=== PATIENT | male | born 1970 | race Caucasian/White ===

== ENCOUNTER → 2017-01-15 | Outpatient (CLI) | payer BC, OTHER, SELFPAY ==
--- NOTE | 2017-01-15 19:18 | MRI ---
EXAM DESCRIPTION: Lumbar Spine w/Contrast CLINICAL HISTORY: 46 years,Male,BULGING DISC COMPARISON: None TECHNIQUE: MRI before multiple sequences of the lumbar spine. With and without gadolinium contrast FINDINGS: The vertebral bodies demonstrate normal signal and morphology. Spinal cord normal signal and morphology. No enhancing masses. Tip of the conus is at L1. Surrounding soft tissues unremarkable. L5-S1: Disk height is mildly loss. There is moderate annular disc bulge with AP thickness of about 4 mm and possible high intensity zone and some mild enhancement about the annulus.. The facettes mildly hypertrophic. There is mild lateral recess stenosis bilaterally. Upon the transversing S1 nerve roots. There is [id number] bilateral neural foraminal stenosis. L4-5: Disk height is mild to moderate loss. There is mild annular disc bulge but a left paracentral focal disc protrusion of C6-7 millimeters causing moderate left lateral recess stenosis impinging upon the transversing L5 nerve root and there is enhancement of the stranding tissue and the patient has had a left hemilaminectomy. The facettes moderately hypertrophic. There is left lateral recess stenosis. There is moderate to severe left neural foraminal stenosis minimal right. L3-4: Disk height is unremarkable. There is mild posterior lateral disc bulges. The facettes mildly hypertrophic to moderate. There is no spinal canal stenosis. There is minimal bilateral neural foraminal stenosis. L2-3: Disk height is minimal loss. There is minimal posterior lateral disc bulges. The facettes mildly hypertrophic. There is no spinal canal stenosis. There is no neural foraminal stenosis. L1-2: Disk height is mild loss. There is mild annular disc bulge. The facettes mild hypertrophic. There is no spinal canal stenosis. There is no neural foraminal stenosis. IMPRESSION: L4-5 demonstrates a left hemilaminectomy. There is a left focal disc protrusion resulting in left lateral recess stenosis impinging upon the transversing L5 nerve root. And enhancement granulation tissue about it. L5-S1 demonstrates a broad-based disc bulge with possible posterior annular fissure and mild bilateral lateral recess stenosis impinging upon the transversing L5 nerve roots. There is facet arthropathy throughout the lumbar spine. Mostly mild but more moderate at the lower two lumbar levels. And neural foraminal stenosis as described above at the lower three lumbar levels worse at L4-5 on the left and bilateral at L5-S1 which is more moderate. Electronically signed by: David Davenport MD 01/15/2017 7:17 PM CDT
== END | disposition home or self-care (01) ==
LOC: MRI 07:06
PROVIDERS: ATTEND Family Medicine
DX: M51.26 Other intervertebral disc displacement, lumbar region (principal)

== ENCOUNTER 2019-03-30 18:25 | Emergency (ER) | payer BC, SELFPAY ==
[2019-03-30] MEDS ORDERED: ONDANSETRON INJ 4 MG/2 ML VIAL ONE (18:42)
[2019-03-30] MEDS ORDERED: KETOROLAC TROMETHAMINE INJ 30 MG/ML VIAL ONE (18:42)
[2019-03-30] MEDS ORDERED: MORPHINE SULFATE INJ 10 MG/ML VIAL IV ONE ×2 (18:42→18:44)
[2019-03-30] MEDS ORDERED: ONDANSETRON INJ 4 MG/2 ML VIAL IV ONE ×2 (18:42→18:44)
[2019-03-30] MEDS ORDERED: KETOROLAC TROMETHAMINE INJ 30 MG/ML VIAL IV ONE (18:42)
[2019-03-30] MEDS ORDERED: MORPHINE SULFATE INJ 10 MG/ML VIAL ONE (18:43)
--- NOTE | 2019-03-30 18:47 | ED.PDOC ---
History of Present Illness - General Chief Complaint: Problem Time Seen by Provider: 03/30/19 18:38 Source: patient, Vital Signs reviewed, family Exam Limitations: no limitations - History of Present Illness Initial Comments: 49 yo male with a h/o kidney stones presents c/o left flank pain x 1 week acutely worse today. No fever, hematuria or vomiting. Timing/Duration: week Quality: severe, aching, waxing/waning Onset Location: left flank Radiation: left flank Activites at Onset: none Prior abdominal problems: similar symptoms Improving Factors: nothing Worsening Factors: nothing Associated Symptoms: abdominal pain Allergies/Adverse Reactions: Allergies NO KNOWN ALLERGY Allergy (Verified 08/24/13 17:30) Home Medications: Ambulatory Orders Fluticasone/Salmeterol 250/50 [Advair 250/50 Diskus] 1 puff INH HS 08/25/13 Review of Systems - Review of Systems Constitutional: States: no symptoms reported EENTM: States: no symptoms reported Respiratory: States: no symptoms reported Cardiology: States: no symptoms reported Gastrointestinal/Abdominal: States: see HPI Genitourinary: States: see HPI Musculoskeletal: States: see HPI Skin: States: no symptoms reported Neurological: States: headache - headaches the last couple of days Endocrine: States: no symptoms reported Past Medical History (General) - Patient Medical History Hx Seizures: No Hx Stroke: No Hx Asthma: Yes Hx of COPD: No Hx Cardiac Disorders: Yes Hx Congestive Heart Failure: Yes Hx Pacemaker: No Hx Hypertension: No Hx Diabetes: No - Social History Hx Alcohol Use: No Hx Substance Use: No Hx Physical Abuse: No Hx Emotional Abuse: No Physical Exam - Physical Exam General Appearance: Alert, Anxious, Comfortable, Restless Eyes, Ears, Nose, Throat Exam: normal ENT inspection Neck: supple, normal inspection Cardiovascular/Respiratory: regular rate, rhythm, normal breath sounds, no respiratory distress Gastrointestinal/Abdominal: non tender, soft, no organomegaly, no pulsatile mass Back Exam: normal inspection, CVA tenderness (L) Extremity: normal range of motion, normal inspection Neurologic: alert, normal mood/affect, oriented x 3 Skin Exam: normal color, warm/dry Progress - Progress Progress: 03/30/19 18:48 transfer of care to Dr. Finney at shift change. Departure - Departure Clinical Impression: Kidney symptom or sign Disposition: Discharge to Home or Self Care Condition: Fair Departure Forms: ED Discharge - Pt. Copy Home Medications: Ambulatory Orders Fluticasone/Salmeterol 250/50 [Advair 250/50 Diskus] 1 puff INH HS 08/25/13 Addendum entered and electronically signed by Jim Finney MD 03/30/19 21:23: Departure - Departure Clinical Impression: Kidney symptom or sign Disposition: Discharge to Home or Self Care Condition: Fair Departure Forms: ED Discharge - Pt. Copy Home Medications: Ambulatory Orders Fluticasone/Salmeterol 250/50 [Advair 250/50 Diskus] 1 puff INH HS 08/25/13 ED Addendum - ED Addendum Addendum: HAVE SEEN AND EXAMINED PT. AGREE WITH DOCUMENTATION. PT VERY UNCOMFORTABLE AFTER TORADOL AND MULTIPLE DOSES OF NARCOTICS. CT ABD SHOWS 6+ MM STONE L MID URETER WITH HYDRONEPHROSIS. CHECK CBC, BMP GIVE DILAUDID NS AND OBSERVE. Addendum entered and electronically signed by Jim Finney MD 03/30/19 22:29: Departure - Departure Clinical Impression: Kidney symptom or sign Disposition: Discharge to Home or Self Care Condition: Fair Departure Forms: ED Discharge - Pt. Copy Referrals: REUBEN SANDERS MD [Primary Care Provider] - 1-2 Weeks Home Medications: Ambulatory Orders Fluticasone/Salmeterol 250/50 [Advair 250/50 Diskus] 1 puff INH HS 08/25/13 ED Addendum - ED Addendum Addendum: STILL WITHOUT RELIEF. WOULD LIKE TO BE TRANSFERRED TO [facility]. Addendum entered and electronically signed by Jim Finney MD 03/31/19 02:27: Departure - Departure Clinical Impression: Kidney symptom or sign, Renal colic on left side Time of Disposition: 02:07 Disposition: Transfer to Hospital Condition: Good Departure Forms: ED Discharge - Pt. Copy Referrals: REUBEN SANDERS MD [Primary Care Provider] - 1-2 Weeks Home Medications: Ambulatory Orders Fluticasone/Salmeterol 250/50 [Advair 250/50 Diskus] 1 puff INH HS 08/25/13 ED Addendum - ED Addendum Addendum: HAVING SOME PAIN BUT OVERALL FEELS BETTER. HAVE DISCUSSED WITH DR ENGEL AND PT WILL MOST LIKELY GO TO [facility] IF HE BEGINS HURTING SIGNIFICANTLY AGAIN. 225: PT HURTING AGAIN, WANTS TO GO TO [facility]. Transfer to Outside Facility - Transfer Information Accepting Provider:: DR BORGES Accepting Facility: [facility] Reason for Transfer: required specialist not available
[2019-03-30] MEDS ORDERED: fentaNYL CITRATE INJ 50 MCG/ML AMP IV ONE (19:21)
--- NOTE | 2019-03-30 19:50 | CT ---
EXAM DESCRIPTION: Abdoment/Pelvis w/o Contrast CLINICAL HISTORY: left flank pain COMPARISON: None Available TECHNIQUE: Contiguous axial images of the abdomen and pelvis were obtained followed by reconstruction images. This exam was performed according to our departmental dose-optimization program, which includes automated exposure control, adjustment of the mA and/or kV according to patient size and/or use of iterative reconstruction technique. FINDINGS: Patient is status post cholecystectomy. The left kidney demonstrates hydronephrosis due to of 6 x 4.5 mm stone at the left mid ureter. There are diverticuli without CT evidence of acute diverticulitis. Calcifications within the pelvis compatible with phleboliths. The liver, spleen, pancreas and right kidney are within normal limits. Adrenal glands are within normal limits. Aorta is of normal caliber and tapering. There is no free fluid in the abdomen or pelvis. There is no bowel obstruction. The appendix is within normal limits. There is no pericecal inflammation. IMPRESSION: Left-sided hydronephrosis due to a 6 x 4.5 mm stone at the left mid ureter. Electronically signed by: Brayan Parkinson MD 03/30/2019 7:48 PM CDT
[2019-03-30] MEDS ORDERED: SODIUM CHLORIDE 0.9% 1000ML 1,000 ML IVS ONE (20:49)
[2019-03-30] MEDS ORDERED: HYDROmorphone HCL INJ 2 MG/ML VIAL IV ONE ×2 (21:03→23:06)
[2019-03-31] MEDS ORDERED: KETOROLAC TROMETHAMINE INJ 30 MG/ML VIAL ONE (02:15)
[2019-03-31] MEDS ORDERED: KETOROLAC TROMETHAMINE INJ 30 MG/ML VIAL IV ONE (02:24)
[2019-03-31 03:13] VITALS: O2SAT 95
[2019-03-31 03:14] VITALS: BP 131/88; TEMP 98.4
== END 2019-03-31 03:28 | disposition short-term general hospital (02) ==
LOC: ER 18:25
DX: N13.2 Hydronephrosis with renal and ureteral calculous obstruction (principal); I50.9 Heart failure, unspecified; I51.9 Heart disease, unspecified; J45.909 Unspecified asthma, uncomplicated
CPT/HCPCS: 74176; 80048; 81001; 85025; J1170; J1885; J2270; J2405; J3010; J7030

== ENCOUNTER → 2020-05-02 | Outpatient (CLI) | payer BC | LOC: GMAE 16:55 | PROVIDERS: ATTEND Family Medicine | DX: R06.02 Shortness of breath (principal) ==

== ENCOUNTER → 2020-08-16 | Outpatient (CLI) | payer BC ==
--- NOTE | 2020-08-16 16:34 | RAD ---
EXAM DESCRIPTION: Chest,2 Views CLINICAL HISTORY: 50 years Male, coronavirus infection COMPARISON: None. TECHNIQUE: 2 view radiograph of the chest. IMPRESSION: Normal size cardiac silhouette. Bilateral perihilar fullness may represent congestion versus infectious as bronchitis. No pulmonary opacities identified. Please note that chest radiographs have low sensitivity for subtle groundglass opacities. No pleural effusion or pneumothorax. Included osseous structures intact. Electronically signed by: Bill Vincent MD 08/16/2020 4:32 PM [facility]
== END ==
LOC: RAD 15:50
PROVIDERS: ATTEND Nurse Practitioner Family
DX: B34.2 Coronavirus infection, unspecified (principal); R09.02 Hypoxemia; R71.8 Other abnormality of red blood cells

== ENCOUNTER 2020-08-17 12:45 | Observation (INO) | payer BC ==
--- NOTE | 2020-08-17 12:52 | HP ---
SUPERVISING PHYSICIAN: Yo Aguilar MD CHIEF COMPLAINT: Covid positive with worsening shortness of breath and cough. HISTORY OF PRESENT ILLNESS: Mr. Lee is a 40 year-old male patient with a history of moderate persistent asthma, irritable bowel syndrome, diverticulosis, anxiety disorder. He started having some symptoms of general malaise, weakness and fever and shortness of breath about a week previously. His entire family had the same symptoms. He went to [facility] and was tested on Thursday and found to be positive for Covid. He was taking his albuterol treatments but this week has progressively worsened. He was watching his oxygen saturation at home and this was 88% at rest. He saw Dr. Graham yesterday and had labs done and was told to give him a call this morning if he was not feeling any better. Overnight, he was still having significant shortness of breath with desaturations. He called Dr. Graham and Dr. Graham recommended he be at least placed in observation given his persistent asthma and Covid status for further evaluation and treatment. He denied any chest pain, palpitations or syncopal episodes. No nausea, vomiting, diarrhea. PAST MEDICAL HISTORY: 1. Persistent moderate asthma. 2. Irritable bowel syndrome. 3. Diverticulosis. 4. Anxiety disorder. PAST SURGICAL HISTORY: 1. Laparoscopic cholecystectomy. 2. Open reduction and internal fixation right ankle. 3. Back surgery. 4. Nasal surgery. 5. Colonoscopy in 2010 that showed diverticulosis. 6. Esophagogastroduodenoscopy in 2010 that was normal. CURRENT MEDICATIONS: 1. Advair Diskus 1 puff h.s. 2. Albuterol inhaler as needed. ALLERGIES: NO REPORTED ALLERGIES. FAMILY HISTORY: Father at age 32 with history of renal cell carcinoma. Mother has positive history of heart disease. 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 He is and has 3 children. He has no history of smoking, drinking or use illicit drugs. . REVIEW OF SYSTEMS: CONSTITUTIONAL: Positive for general malaise, subjective fevers, chills, night sweats. HEENT: Denies earache, sore throat, has some mild nasal congestion. No vision changes, headaches. CARDIOVASCULAR: Denies chest pain, palpitations. syncopal episodes. RESPIRATORY: As noted in history of present illness, increasing shortness of breath and cough. GASTROINTESTINAL: Denies nausea, vomiting, diarrhea, constipation or abdominal pain. GENITOURINARY: No dysuria, hematuria, polyuria. NEUROLOGIC: Denies headache, dizziness, seizures, syncopal episodes. HEMATOLOGIC: Denies easy bleeding, bruising or unexplained bleeding tendencies. No transfusion reactions. PHYSICAL EXAMINATION: VITAL SIGNS: On admission, temperature 98.5, pulse 78, blood pressure 128/73, respirations 24, oxygen saturation 88% room saturation improving to 97% with 2 liter nasal cannula and breathing treatments. GENERAL: The patient looks to be resting comfortably and in no acute distress. HEENT: Tympanic membranes cle4ar bilaterally. Oropharynx is pink, moist, no lesions. NECK: Supple, non-tender, full range of motion. No jugular venous distention. CHEST: Lung sounds very faint inspiratory wheezing noted. No rhonchi, rales, just a little diminished throughout. CARDIOVASCULAR: Regular rate and rhythm without appreciable murmurs, rubs, or gallops. ABDOMEN: Soft, non-tender, positive bowel sounds. EXTREMITIES: No clubbing, cyanosis or edema. NEUROLOGIC: He is alert and oriented x3. Cranial nerves II through XII are grossly intact. SKIN: Warm, pink and dry. LABORATORY: White count on admission 6,500 with low lymphocyte count with hemoglobin 13.6, hematocrit3 9.3, differential shows to be without a left shift. Coagulation studies showed normal D-dimer at 399, fibrinogen 391. Chemistries showed a sodium of 133, potassium 3.7. Calcium a little low at 7.8 but albumin was 3.2 which corrected calcium to 8.1. Magnesium normal at 1.9. Liver functions all within normal limits. BNP was negative at less than 15. RADIOLOGY: Chest x-ray per radiology interpretation showed atelectasis and scarring in the left lung base without airspace consolidation or radiologic evidence of pneumonia. ASSESSMENT: 1. Covid pneumonitis. 2. Persistent moderate asthma with exacerbation secondary to #1. 3. Irritable bowel syndrome. 4. Diverticulosis. 5. Anxiety disorder. PLAN: The patient is going to be placed in observation at least overnight for close monitoring due to the fact that he was showing room saturation to 88%. He is at a little high risk due to the fact he as asthma but will treat him aggressively with Remdesivir, Rocephin, azithromycin, Lovenox, Protonix, Align. He will be on albuterol breathing treatments. I will get him some cough medicine as needed. Will recheck Covid labs as per protocol as well as check x- ray in the morning. I anticipate his length of stay to be at least 1 to 2 days, possibly longer depending on how he does on his 02 needs and his labs. Until he can clinically improve well enough to discharge to outpatient management, We will continue to monitor him and treat as needed. [facility][id number] [facility]
[2020-08-17] MEDS ORDERED: ONDANSETRON INJ 4 MG/2 ML VIAL IV PRN (13:25)
[2020-08-17] MEDS ORDERED: ACETAMINOPHEN 325 MG TAB PO PRN (13:25)
[2020-08-17] MEDS ORDERED: SODIUM CHLORIDE 0.9% (FLUSH) 10 ML SYG IV PRN (13:25)
[2020-08-17] MEDS ORDERED: ALBUTEROL INHALER 64 PUFF/8GM INH PRN (13:28)
[2020-08-17] MEDS ORDERED: IV SET AND CAP CHANGE INJ INJ SCH (13:30)
[2020-08-17] MEDS ORDERED: REMDESIVIR 200 MG in SODIUM CHLORIDE 0.9% 250ML 250 ML IVPB SCH (13:30)
[2020-08-17] MEDS: AZITHROMYCIN IV 500 MG in SODIUM CHLORIDE 0.9% 250ML 250 ML IVPB SCH (14:34)
[2020-08-17] MEDS: DEXAMETHASONE INJ 10 MG/ML VIAL IV SCH (14:34)
[2020-08-17] MEDS: cefTRIAXone SODIUM 1 GM in SODIUM CHL 0.9% 50ML MIN-BAG+ 50 ML IVPB SCH (14:34)
[2020-08-17] MEDS: ENOXAPARIN SODIUM 40 MG/0.4 ML SYG SUBCU SCH (14:34)
--- NOTE | 2020-08-17 14:57 | RAD ---
EXAM DESCRIPTION: Chest,1 View CLINICAL HISTORY: covid COMPARISON: August 16, 2020 FINDINGS: The cardiomediastinal silhouette is unremarkable. Subsegmental atelectasis or scarring in the left lung base, no airspace consolidation or pleural effusion. The lung volumes are within normal range. There is no pneumothorax or acute fracture. IMPRESSION: Subsegmental atelectasis or scarring in the left lung base without airspace consolidation or radiographic evidence of pneumonia. Electronically signed by: Antwon Finney MD 08/17/2020 2:55 PM [facility]
[2020-08-17] MEDS ORDERED: SODIUM CHLORIDE 0.9% 250ML 250 ML ONE (16:55)
[2020-08-17] MEDS ORDERED: REMDESIVIR 200 MG ONE (16:55)
[2020-08-17] MEDS: ALBUTEROL INHALER 64 PUFF/8GM INH SCH ×2 (17:00→21:45)
[2020-08-17] MEDS ORDERED: tiZANidine 4 MG TAB PO ONE (19:33)
[2020-08-17] MEDS ORDERED: HYDROcodone 5MG/APAP 325MG 1 EA TAB ONE (19:39)
[2020-08-17] MEDS ORDERED: tiZANidine 4 MG TAB ONE (19:40)
[2020-08-17] MEDS ORDERED: PROMETHAZINE W/CODEINE SYR 5 ML UD PO PRN (20:27)
[2020-08-17] MEDS: HYDROcodone 5MG/APAP 325MG 1 EA TAB PO PRN (20:36)
[2020-08-18] MEDS ORDERED: HYDROcodone 5MG/APAP 325MG 1 EA TAB ONE ×4 (00:02→20:17)
[2020-08-18] MEDS: HYDROcodone 5MG/APAP 325MG 1 EA TAB PO PRN ×4 (00:16→20:35)
[2020-08-18] MEDS ORDERED: PANTOPRAZOLE SODIUM IV 40 MG VIAL ONE (04:31)
[2020-08-18] MEDS: PANTOPRAZOLE SODIUM IV 40 MG VIAL IV SCH (06:10)
[2020-08-18] MEDS ORDERED: REMDESIVIR 100 MG ONE (06:57)
[2020-08-18] MEDS ORDERED: BIFIDOBACTERIUM INFANTIS 4 MG CAP ONE (06:57)
[2020-08-18] MEDS ORDERED: SODIUM CHLORIDE 0.9% 250ML 250 ML ONE (06:57)
--- NOTE | 2020-08-18 07:55 | RAD ---
: 1970. Technique: Portable AP chest x-ray. Comparison: August 17, 2020. Clinical history: covid. Heart size: Heart size is normal. Lungs: Minimal linear densities at the lung bases redemonstrated from subsegmental atelectasis. No other radiographic infiltrates. Pleura: No pleural effusion. No pneumothorax. Mediastinum and lisette: Unremarkable. Skeletal: Unremarkable. Support tubings: None. Impression: 1. Small bibasilar atelectasis. Electronically signed by: Leonard Barth MD 08/18/2020 7:54 AM [employer]
[2020-08-18] MEDS: BIFIDOBACTERIUM INFANTIS 4 MG CAP PO SCH (08:00)
[2020-08-18] MEDS: DEXAMETHASONE INJ 10 MG/ML VIAL IV SCH (08:00)
[2020-08-18] MEDS: REMDESIVIR 100 MG in SODIUM CHLORIDE 0.9% 250ML 250 ML IVPB SCH (08:00)
[2020-08-18] MEDS: ENOXAPARIN SODIUM 40 MG/0.4 ML SYG SUBCU SCH (08:00)
[2020-08-18] MEDS: ALBUTEROL INHALER 64 PUFF/8GM INH SCH ×4 (10:00→20:20)
[2020-08-18] MEDS: cefTRIAXone SODIUM 1 GM in SODIUM CHL 0.9% 50ML MIN-BAG+ 50 ML IVPB SCH (13:30)
[2020-08-18] MEDS: AZITHROMYCIN IV 500 MG in SODIUM CHLORIDE 0.9% 250ML 250 ML IVPB SCH (14:21)
--- NOTE | 2020-08-18 16:16 | PN ---
SUPERVISING PHYSICIAN: Yo Aguilar MD DATE: 08/18/20 SUBJECTIVE: The patient is still having a little bit of shortness of breath, even at rest. He still has a cough, otherwise, no significant complaints. Vital signs are showing to be stable. He remains afebrile. OBJECTIVE: VITAL SIGNS: Temperature 98.1, pulse 74, blood pressure 110/74 respirations 16, oxygen saturation 98% on 1 liter nasal cannula. GENERAL: The patient looks to be resting comfortably. He does not appear to be in any distress. He is alert. CHEST: Lung sounds are diminished throughout. No obvious rhonchi, rales, or wheezes. HEART: Regular rate and rhythm. ABDOMEN: Soft, non-tender, positive bowel sounds. EXTREMITIES: Without edema. NEUROLOGIC: Alert and oriented x3. LABORATORY: White count 4,800, hemoglobin 13.5, hematocrit 38.8, platelet count 151,000, differential does show a left shift. Coagulation studies show normal D-dimer and chemistries show normal electrolytes with creatinine of 0.67. Liver functions all within normal limits. Magnesium normal at 2.1. C-reactive protein up to 6.1. RADIOLOGY: Chest x-ray this morning per radiology interpretation shows small bibasilar atelectasis. ASSESSMENT: 1. Covid pneumonitis. 2. Persistent moderate asthma with exacerbation secondary to #1. 3. Irritable bowel syndrome. 4. Diverticulosis. 5. Anxiety disorder. PLAN: Will continue patient in observation. I anticipate that hopefully he will discharge tomorrow. He will be on aggressive bronchial hygiene. He remains on Remdesivir, azithromycin, Rocephin, Decadron, Lovenox, Protonix, Align. We will follow his labs closely. Until we can transition patient to outpatient management, we will continue to monitor and treat as needed. [facility][id number] [facility]
[2020-08-18] MEDS ORDERED: PROMETHAZINE W/CODEINE SYR 5 ML UD PO ONE (19:22)
[2020-08-18] MEDS ORDERED: guaiFENesin ER TAB 600 MG TAB ONE (19:23)
[2020-08-18] MEDS: guaiFENesin ER TAB 600 MG TAB PO SCH (20:34)
[2020-08-19] MEDS: PANTOPRAZOLE SODIUM IV 40 MG VIAL IV SCH (05:50)
[2020-08-19] MEDS: DEXAMETHASONE INJ 10 MG/ML VIAL IV SCH (08:57)
[2020-08-19] MEDS: BIFIDOBACTERIUM INFANTIS 4 MG CAP PO SCH (08:57)
[2020-08-19] MEDS: ENOXAPARIN SODIUM 40 MG/0.4 ML SYG SUBCU SCH (08:58)
[2020-08-19] MEDS ORDERED: guaiFENesin ER TAB 600 MG TAB ONE (09:00)
[2020-08-19] MEDS: REMDESIVIR 100 MG in SODIUM CHLORIDE 0.9% 250ML 250 ML IVPB SCH (09:01)
[2020-08-19] MEDS: guaiFENesin ER TAB 600 MG TAB PO SCH (09:01)
[2020-08-19] MEDS: ALBUTEROL INHALER 64 PUFF/8GM INH SCH ×2 (09:11→12:58)
--- NOTE | 2020-08-19 10:25 | RAD ---
EXAM: XR Chest, 1 View CLINICAL HISTORY: covid TECHNIQUE: Frontal view of the chest. COMPARISON: 08/18/2020 FINDINGS: Lungs: New focus of groundglass opacity noted in the periphery of the left midlung. Mild patchy groundglass infiltrate in the bases unchanged. Pleural space: No pneumothorax or pleural effusion. Heart: Normal cardiac size and configuration. Mediastinum: No abnormality noted. Bones/joints: No osseous destruction or sclerosis noted. IMPRESSION: There is a new peripheral groundglass infiltrate in the left lung which is a typical imaging features covid pneumonia. Electronically signed by: Ginna Mcgraw MD 08/19/2020 10:24 AM [facility]
[2020-08-19] MEDS: cefTRIAXone SODIUM 1 GM in SODIUM CHL 0.9% 50ML MIN-BAG+ 50 ML IVPB SCH (12:28)
[2020-08-19] MEDS ORDERED: PROMETHAZINE W/COD (ER DISP) 20 ML BTTL PO ONE ×2 (14:34→14:47)
[2020-08-19] MEDS: AZITHROMYCIN IV 500 MG in SODIUM CHLORIDE 0.9% 250ML 250 ML IVPB SCH (14:52)
[2020-08-19 15:32] VITALS: BP 107/65; TEMP 99; O2SAT 95
--- NOTE | 2020-08-20 08:55 | DS ---
SUPERVISING PHYSICIAN: Yo Aguilar MD ADMISSION DIAGNOSIS: 1. COVID pneumonitis. 2. Persistent moderate asthma with exacerbation secondary to #1. 3. Irritable bowel syndrome. 4. Diverticulosis. 5. Anxiety disorder. DISCHARGE DIAGNOSIS: 1. COVID pneumonitis with developing pneumonia. 2. Persistent moderate asthma with exacerbation secondary to #1, showing improvement with treatment. 3. Irritable bowel syndrome. 4. Diverticulosis. 5. Anxiety disorder. REASON FOR HOSPITALIZATION: Mr. Lee is a 40 year-old male patient with a history of moderate persistent asthma, irritable bowel syndrome, diverticulosis, anxiety disorder. He started having some symptoms of general malaise, weakness and fever and shortness of breath about a week previously. His entire family had the same symptoms. He went to [facility] and was tested on Thursday and found to be positive for COVID. He was taking his albuterol treatments but this week has progressively worsened. He was watching his oxygen saturation at home and this was 88% at rest. He saw Dr. Graham yesterday and had labs done and was told to give him a call this morning if he was not feeling any better. Overnight, he was still having significant shortness of breath with desaturations. He called Dr. Graham and Dr. Graham recommended he be at least placed in observation given his persistent asthma and COVID status for further evaluation and treatment. He denied any chest pain, palpitations or syncopal episodes. No nausea, vomiting, diarrhea. LABORATORY: White count on discharge was 5,900, hemoglobin 13.6, hematocrit 39.0, platelet count 156,000. Differential was without a left shift. Coagulation studies showed normal D-dimer on admission and at discharge. Fibrinogen was only slightly elevated at 450. PTT was normal. Chemistries showed normal electrolytes on discharge. Calcium 7.7, but corrected to 8.1 with albumin 3.0. C-reactive protein was down to 2.9 from 6.1 on admission. Troponin less than 0.02. MICROBIOLOGY: No specimens were submitted. RADIOLOGY: Chest x-ray on day of discharge per radiologic interpretation showed new perihilar ground glass infiltrate in the left lung which is typical imaging features of COVID pneumonia. HOSPITAL COURSE: Mr. Lee was admitted for worsening symptoms of COVID pneumonitis. He was started on treatment with Remdesivir, azithromycin, Rocephin, Decadron, Align, Protonix, oxygen as needed and albuterol treatments as needed. He had good response to treatment and was not showing on any desaturations on ambulation. At time of discharge, clinically, he was showing just a low grade fever at 99, but his pulse was 65, blood pressure 107/65, respiratory rate 16, saturation 95-96% on room air. PLAN: Mr. Lee was discharged to followup with [facility]. He is to call his office on Thursday. He was educated on social isolation recommendations and to be continued until Dr. Graham releases him. He is to resume his usual diet, increase his activity as tolerated. MEDICATIONS PRESCRIBED ON DISCHARGE: 1. Align 4 mg daily, #30. 2. Azithromycin 500 mg, #2, no refills. 3. Decadron 6 mg daily,#7, no refills. 4. Guaifenesin 600 mg twice daily as needed. 5. Cefdinir 300 mg twice daily, #14, no refills. 6. Promethazine with codeine 5 mL q.4h. as needed for cough, #4 ounces, no refills. 7. Albuterol inhaler 2 puffs inhaled q.4h. as needed for shortness of breath. CONDITION ON DISCHARGE: Stable and improved. DISPOSITION: The patient was discharged home. #[id number] [facility]
== END 2020-08-19 15:15 | disposition home or self-care (01) ==
LOC: MS 12:45 → INTOOBSV 12:45
PROVIDERS: ADMIT Nurse Practitioner Family; ATTEND Nurse Practitioner Family
DX: U07.1 COVID-19 (principal); J12.89 Other viral pneumonia; J45.41 Moderate persistent asthma with (acute) exacerbation; K58.9 Irritable bowel syndrome, unspecified; K57.30 Diverticulosis of large intestine without perforation or abscess without bleeding; F41.9 Anxiety disorder, unspecified; Z79.51 Long term (current) use of inhaled steroids; Z79.899 Other long term (current) drug therapy
CPT/HCPCS: 96366 ×2; 96367 ×2; 96365; 96375 ×2; 96376 ×3; 96372 ×3; J0696 ×3; J2405; J7050 ×11; J1650 ×3; J1100 ×3; J0456 ×3; 85379 ×3; 80048; 80053 ×2; 36415 ×3; 85384 ×3; 80076; 86140 ×3; 85025 ×3; 82550 ×2; 82728; 83615 ×3; 83735 ×3; 85730 ×3; 84484 ×2; 83880; 71045 ×3; 94760 ×7; 94664; 94640 ×7; 94762; G0378